=== PATIENT | female | born 2005 | race Hispanic/Latino ===

== ENCOUNTER 2023-04-19 16:00 | Inpatient (IN) | payer BC ==
[~2023-04-19] VITALS: Ht 167.6 cm; Wt 63.5 kg
[2023-04-19] MEDS ORDERED: SODIUM CHLORIDE 0.9% 1000ML 1,000 ML IV ONE (18:15)
[2023-04-19 18:20] LABS: BASOPHILS % 0.2 % (0.0-1.0); EOSINOPHILS # (AUTO) 0.1 (0.0-0.4); EOSINOPHILS % 0.3 % (0.0-6.0); HEMATOCRIT 39.2 % (34.2-44.1); HEMOGLOBIN 12.6 g/dL (12.0-16.0); LYMPHOCYTES # (AUTO) 2.1 (1.0-3.2); LYMPHOCYTES % 10.3 % (18.0-39.1); MEAN CORPUSCULAR HEMOGLOBIN 28.3 pg (28-32); MEAN CORPUSCULAR HGB CONC 32.1 g/dL (31-35); MEAN CORPUSCULAR VOLUME 87.9 fL (81-99); MONOCYTES # (AUTO) 1.8 (0.2-0.8); MONOCYTES % 8.8 % (4.4-11.3); NEUTROPHILS # (AUTO) 16.2 (2.1-6.9); NEUTROPHILS % 79.9 % (38.7-80.0); PLATELET COUNT 366 x10e3/uL (140-360); RED BLOOD COUNT 4.46 x10e6/uL (3.6-5.1); RED CELL DISTRIBUTION WIDTH 13.1 % (11.7-14.4); WHITE BLOOD COUNT 20.32 x10e3/uL (4.8-10.8)
[2023-04-19 18:32] LABS: ALBUMIN 4.5 g/dL (3.5-5.0); ALBUMIN/GLOBULIN RATIO 0.9 (0.8-2.0); ANION GAP 18.9 mmol/L (8-16); CREATININE, SERUM 0.7 mg/dL (0.57-1.11); TOTAL PROTEIN 9.4 g/dL (6.5-8.1)
[2023-04-19 18:36] LABS: POTASSIUM 2.9 mmol/L (3.5-5.1)
[2023-04-19 18:45] LABS: BILIRUBIN,TOTAL 0.7 mg/dL (0.2-1.2)
[2023-04-19] MEDS ORDERED: Vancomycin IV 1 GM in SODIUM CHLORIDE 0.9% 250ML 250 ML IV SCH (19:00)
[2023-04-19] MEDS ORDERED: ONDANSETRON HCL INJ 2MG/ML 2ML 2 MG/ML VIAL IV STA (19:14)
[2023-04-19] MEDS ORDERED: Morphine 2mg Syringe 2 MG/ML SYR IV ONE (19:15)
[2023-04-19] MEDS ORDERED: ACETAMINOPHEN 325 MG TAB PO ONE (19:15)
[2023-04-19] MEDS: KCL 20MEQ/.9 SOD CHL 1,000 ML IV SCH (19:44)
[2023-04-19] MEDS ORDERED: ACETAMINOPHEN 325 MG TAB PO PRN (19:45)
[2023-04-19 20:00] VITALS: BP_SYST 122; BP_DIAS 57; BP_DIAS 79; PULSE 79; RESP 18; TEMP 98.7; O2SAT 100
[2023-04-19 21:15] VITALS: BP 106/60; PULSE 86; RESP 15; TEMP 99.5; O2SAT 100
[2023-04-20] MEDS: Morphine 4mg INJECTION 4 MG/ML INJ IV PRN ×2 (00:14→12:47)
[2023-04-20] MEDS: KCL 20MEQ/.9 SOD CHL 1,000 ML IV SCH ×3 (00:14→18:42)
[2023-04-20] MEDS ORDERED: FAMOTIDINE20 MG PO (06:21)
[2023-04-20] MEDS ORDERED: DICYCLOMINE HCL10 MG PO (06:21)
[2023-04-20 07:12] LABS: BASOPHILS % 0.1 % (0.0-1.0); EOSINOPHILS # (AUTO) 0.2 (0.0-0.4); EOSINOPHILS % 1.2 % (0.0-6.0); HEMATOCRIT 28.9 % (34.2-44.1); HEMOGLOBIN 9.4 g/dL (12.0-16.0); LYMPHOCYTES # (AUTO) 1.5 (1.0-3.2); LYMPHOCYTES % 12.1 % (18.0-39.1); MEAN CORPUSCULAR HEMOGLOBIN 28.1 pg (28-32); MEAN CORPUSCULAR HGB CONC 32.5 g/dL (31-35); MEAN CORPUSCULAR VOLUME 86.5 fL (81-99); MONOCYTES # (AUTO) 1.6 (0.2-0.8); NEUTROPHILS # (AUTO) 8.8 (2.1-6.9); NEUTROPHILS % 73.2 % (38.7-80.0); PLATELET COUNT 265 x10e3/uL (140-360); RED BLOOD COUNT 3.34 x10e6/uL (3.6-5.1); RED CELL DISTRIBUTION WIDTH 13.2 % (11.7-14.4); WHITE BLOOD COUNT 12.05 x10e3/uL (4.8-10.8)
[2023-04-20 07:48] LABS: ALBUMIN/GLOBULIN RATIO 1.1 (0.8-2.0); ANION GAP 14.4 mmol/L (8-16); BILIRUBIN,TOTAL 0.9 mg/dL (0.2-1.2); CALCIUM 8.3 mg/dL (8.4-10.2); CREATININE, SERUM 0.59 mg/dL (0.57-1.11); TOTAL PROTEIN 5.8 g/dL (6.5-8.1)
[2023-04-20 07:49] LABS: POTASSIUM 3.4 mmol/L (3.5-5.1)
[2023-04-20 08:00] VITALS: BP 102/58; PULSE 95; RESP 18; TEMP 98.4; O2SAT 99
[2023-04-20 12:00] VITALS: BP 98/55; PULSE 59; RESP 17; TEMP 98.3; O2SAT 100
[2023-04-20] MEDS: ONDANSETRON HCL INJ 2MG/ML 2ML 2 MG/ML VIAL IV PRN (12:47)
[2023-04-20] MEDS ORDERED: ROCURONIUM BROMIDE 10 MG/ML 5ML VIAL IV ONE (13:10)
[2023-04-20] MEDS ORDERED: ONDANSETRON HCL INJ 2MG/ML 2ML 2 MG/ML VIAL ONE (13:10)
[2023-04-20] MEDS ORDERED: LIDOCAINE HCL 2% LOCAL INJ 5 ML SDV VIAL INJ ONE (13:10)
[2023-04-20] MEDS ORDERED: ALBUTEROL 90 MCG/ACT INHALER INH ONE (13:10)
[2023-04-20] MEDS ORDERED: KETOROLAC TROMETHAMINE 30 MG/ML VIAL ONE (13:10)
[2023-04-20] MEDS ORDERED: SEVOFLURANE INHAL SOLN 250 ML PEN BTL ONE (13:10)
[2023-04-20] MEDS ORDERED: PROPOFOL IV EMULSION 10 MG/ML 20 ML VIAL ONE (13:10)
[2023-04-20] MEDS ORDERED: MIDAZOLAM HCL 2 MG/2 ML VIAL ONE (13:26)
[2023-04-20] MEDS ORDERED: FENTANYL CITRATE/PF 100MCG/2 ML INJ ONE (13:26)
[2023-04-20] MEDS ORDERED: SUGAMMADEX SODIUM 200 MG/2 ML VIAL IV ONE (15:15)
[2023-04-20] MEDS ORDERED: BUPIVACAINE 0.25% 30ML SDV ONE (15:24)
[2023-04-20] MEDS ORDERED: LIDOCAINE 1% W/EPINEPHRINE 20 ML VIAL ONE (15:24)
[2023-04-20 16:00] VITALS: BP 109/64; PULSE 67; RESP 16; TEMP 98; O2SAT 100
[2023-04-20] MEDS ORDERED: HYDROMORPHONE 1MG/1ML INJ IV PRN (16:30)
[2023-04-20] MEDS ORDERED: ACETAMINOPHEN 1000 MG/100 ML 100 ML IV ONE (16:43)
[2023-04-20] MEDS ORDERED: ACETAMINOPHEN 1000 MG/100 ML IV ONE (16:43)
[2023-04-20 17:19] VITALS: BP 120/69; PULSE 59; RESP 15; TEMP 97.5; O2SAT 100
[2023-04-20 20:00] VITALS: BP 109/56; PULSE 72; RESP 18; TEMP 98.1; O2SAT 100
[2023-04-20] MEDS: HYDROCODONE/APAP 7.5MG-325MG 1 EA TAB PO PRN (21:51)
[2023-04-21] VITALS (8 sets, daily range): BP systolic 100–122; BP diastolic 52–79; PULSE 62–86; RESP 18–21; TEMP 97.6–98.4; O2SAT 98–100
[2023-04-21] MEDS: KETOROLAC TROMETHAMINE 30 MG/ML VIAL IV PRN ×2 (00:14→05:28)
[2023-04-21] MEDS: HYDROCODONE/APAP 7.5MG-325MG 1 EA TAB PO PRN ×5 (02:54→22:33)
[2023-04-21] MEDS: KCL 20MEQ/.9 SOD CHL 1,000 ML IV SCH ×3 (02:56→16:55)
[2023-04-21 06:24] LABS: BASOPHILS % 0.1 % (0.0-1.0); EOSINOPHILS # (AUTO) 0.4 (0.0-0.4); EOSINOPHILS % 4.4 % (0.0-6.0); HEMATOCRIT 27.9 % (34.2-44.1); LYMPHOCYTES % 25.3 % (18.0-39.1); MEAN CORPUSCULAR HGB CONC 32.3 g/dL (31-35); MEAN CORPUSCULAR VOLUME 86.9 fL (81-99); MONOCYTES # (AUTO) 0.8 (0.2-0.8); MONOCYTES % 10.3 % (4.4-11.3); NEUTROPHILS # (AUTO) 4.7 (2.1-6.9); NEUTROPHILS % 59.3 % (38.7-80.0); PLATELET COUNT 279 x10e3/uL (140-360); RED BLOOD COUNT 3.21 x10e6/uL (3.6-5.1); WHITE BLOOD COUNT 7.87 x10e3/uL (4.8-10.8)
[2023-04-21 06:51] LABS: ANION GAP 12.6 mmol/L (8-16); CALCIUM 8.1 mg/dL (8.4-10.2); CREATININE, SERUM 0.53 mg/dL (0.57-1.11); POTASSIUM 3.6 mmol/L (3.5-5.1)
[2023-04-21] MEDS: ONDANSETRON HCL INJ 2MG/ML 2ML 2 MG/ML VIAL IV PRN (17:02)
[2023-04-22] VITALS: BP 107/60; PULSE 82; RESP 16; TEMP 98.1; O2SAT 100
[2023-04-22 04:00] VITALS: BP 97/55; PULSE 70; RESP 17; TEMP 98.2; O2SAT 99
[2023-04-22] MEDS: HYDROCODONE/APAP 7.5MG-325MG 1 EA TAB PO PRN (05:09)
[2023-04-22] MEDS: KCL 20MEQ/.9 SOD CHL 1,000 ML IV SCH ×2 (05:10→14:39)
[2023-04-22 08:18] VITALS: BP 104/57; PULSE 58; RESP 16; TEMP 98; O2SAT 99
[2023-04-22 08:35] VITALS: BP 104/57; PULSE 58; RESP 16; TEMP 98; O2SAT 99
[2023-04-22] MEDS ORDERED: NEOMYCIN/POLYMYXIN/BACITRACIN 15 GM TUBE TOP SCH (11:00)
[2023-04-22 12:14] VITALS: BP 118/71; PULSE 68; RESP 16; TEMP 98.7; O2SAT 100
[2023-04-22 16:19] VITALS: BP 125/71; PULSE 58; RESP 17; TEMP 99.1; O2SAT 98
== END 2023-04-22 19:01 | disposition home or self-care (01) | DRG 572 ==
LOC: ER 16:19 → ERHOLD 19:32 → MED/SURG2 21:24 → OBSVTOIN 04-20 14:00
PROVIDERS: ADMIT Surgery; ATTEND Surgery
PROC: 0JB90ZZ Excision of Buttock Subcutaneous Tissue and Fascia, Open Approach (ICD-10-PCS; principal; 2023-04-20 15:48)
DX: L05.01 Pilonidal cyst with abscess (principal); J45.909 Unspecified asthma, uncomplicated; G43.909 Migraine, unspecified, not intractable, without status migrainosus; K31.84 Gastroparesis; Z20.822 Contact with and (suspected) exposure to COVID-19
CPT/HCPCS: 36415; 80048; 80053; 83605; 84702; 85025; 87040; 87071; 87075; 87205; 99252; 99284; G0378; J1170; J1885; J2001; J2250; J2270; J2405; J2543; J7030; J7050; U0002